=== PATIENT | male | born 1935 | race Caucasian/White ===

== ENCOUNTER 2020-03-14 12:58 | Emergency (ER) | payer MEDICARE ==
--- NOTE | 2020-03-14 13:34 | EDM.PDOC ---
ED HPI GENERAL MEDICAL PROBLEM - General Chief Complaint: Upper Extremity Injury/Pain Stated Complaint: FELL WHILE OUTSIDE HURT LEFT ARM Time Seen by Provider: 03/14/20 13:25 Source of Information: Reports: Patient History Limitations: Reports: No Limitations - History of Present Illness INITIAL COMMENTS - FREE TEXT/NARRATIVE: 84-year-old male slipped on the ice about 1-1/2 hours ago landing on his left shoulder. He arrives with pain just below the humeral head on the left side, elbow and wrist are nontender. He has significant pain when trying to move his shoulder. Onset: Sudden Duration: Hour(s): (1-1/2 hours ago) Location: Reports: Upper Extremity, Left Improves with: Reports: None Worsens with: Reports: Movement Context: Reports: Trauma Associated Symptoms: Reports: No Other Symptoms Left Upper Arm Pain Score (Numeric/FACES): 10 - Related Data Allergies Allergy/AdvReac Type Severity Reaction Status Date / Time No Known Allergies Allergy Verified 03/14/20 13:21 Home Meds: Home Meds Aspirin [[place] Aspirin EC] 81 mg PO DAILY 08/16/13 [History] Cholecalciferol (Vitamin D3) [Vitamin D3] 1,000 unit PO DAILY 08/16/13 [History] Cyanocobalamin (Vitamin B-12) [Phys[employer] Ez Use B-12] 1,000 mcg IM Q30D 08/16/13 [History] Donepezil HCl [Aricept ODT] 10 mg PO BEDTIME 08/16/13 [History] Tamsulosin HCl [Flomax] 0.4 mg PO DAILY 08/16/13 [History] amLODIPine Besylate [Amlodipine Besylate] 10 mg PO DAILY 08/16/13 [History] atorvaSTATin Calcium [Atorvastatin Calcium] 20 mg PO DAILY 08/16/13 [History] glipiZIDE [Glucotrol XL] 2.5 mg PO DAILY 08/16/13 [History] risperiDONE [RisperiDAL ODT] 0.5 mg PO BID 08/16/13 [History] Finasteride [Proscar] 5 mg PO DAILY 03/14/20 [History] metFORMIN [Glucophage XR] 1,000 mg PO WITHDINNER 03/14/20 [History] Past Medical History Cardiovascular History: Reports: High Cholesterol, Hypertension, [place], Stents Gastrointestinal History: Reports: Cholelithiasis Genitourinary History: Reports: Urinary Incontinence Endocrine/Metabolic History: Reports: Diabetes, Type II - Infectious Disease History Infectious Disease History: Reports: Measles - Past Surgical History Cardiovascular Surgical History: Reports: Coronary Artery Stent GI Surgical History: Reports: Cholecystectomy Social & Family History - Tobacco Use Tobacco Use Status *Q: Never Tobacco User - Caffeine Use Caffeine Use: Reports: Coffee - Recreational Drug Use Recreational Drug Use: No Review of Systems - Review of Systems Review Of Systems: See Below Constitutional: Denies: Fever Respiratory: Reports: No Symptoms Cardiovascular: Reports: No Symptoms Skin: Denies: Bruising Neurological: Denies: Paresthesia (No numbness to the distal left arm) ED EXAM, GENERAL - Physical Exam Exam: See Below Exam Limited By: No Limitations General Appearance: Alert, Mild Distress (Looks fairly uncomfortable) Head: Atraumatic Neck: Supple, Non-Tender Respiratory/Chest: No Respiratory Distress Extremities: Other (Exam of the left arm and upper chest shows no tenderness over the clavicle or AC joint. Mild swelling and tenderness over the proximal humerus, increased pain with any passive motion of the shoulder. Elbow and wrist are nontender) Course - Vital Signs Last Recorded V/S: Last Vital Signs Temp 98.2 F 03/14/20 13:30 Pulse 95 03/14/20 13:30 Resp 17 03/14/20 13:30 BP 167/89 H 03/14/20 13:30 Pulse Ox 97 03/14/20 13:30 - Orders/Labs/Meds Orders: Active Orders 24 hr Category Date Time Status DME for Discharge [COMM] Stat Oth 03/14/20 14:08 Ordered - Re-Assessments/Exams Free Text/Narrative Re-Assessment/Exam: 03/14/20 13:34 An x-ray of the left shoulder was obtained. 03/14/20 14:11 X-ray confirms a comminuted minimally displaced and slightly impacted left surgical neck fracture. Dr. Adam reviewed the films, recommended a sling for his arm and he will recheck him in 1 week. He was given 10 hydrocodone for extra pain control. Departure - Departure Time of Disposition: 14:30 Disposition: Home, Self-Care 01 Clinical Impression: Left humeral fracture Qualifiers: Encounter type: initial encounter Humerus Location: proximal Fracture type: closed Fracture alignment: displaced - Discharge Information Instructions: Humerus Fracture Treated With Immobilization, [id number] Referrals: PCP,None [Primary Care Provider] - Forms: ED Department Discharge Care Plan Goals: Wear sling at all times except briefly to bathe or change clothes. Recheck with Dr. Adam next Friday, 1 week from today, at 11 AM in the morning. Ibuprofen will help with pain, add stronger pain medication as directed for extra pain control. Recheck sooner if you develop complications or concerns. Sepsis Event Note (ED) - Evaluation Sepsis Screening Result: No Definite Risk - Focused Exam Vital Signs: Vital Signs Temp Pulse Resp BP Pulse Ox 03/14/20 13:30 98.2 F 95 17 167/89 H 97 03/14/20 13:21 98.2 F 95 17 167/89 H 97 - My Orders Last 24 Hours: My Active Orders 03/14/20 14:08 DME for Discharge [COMM] Stat - Assessment/Plan Last 24 Hours: My Active Orders 03/14/20 14:08 DME for Discharge [COMM] Stat
--- NOTE | 2020-03-14 14:01 | CR ---
Shoulder Comp Lt CLINICAL HISTORY: Fall, pain FINDINGS: There is a slightly displaced comminuted fracture of the proximal humerus. Glenohumeral joint appears intact. Impression: Comminuted fracture left humerus
== END 2020-03-14 14:30 | disposition home or self-care (01) ==
LOC: JP.ED 12:58
DX: S42.212A Unspecified displaced fracture of surgical neck of left humerus, initial encounter for closed fracture (principal); E78.00 Pure hypercholesterolemia, unspecified; I10 Essential (primary) hypertension; I25.2 Old myocardial infarction; E11.9 Type 2 diabetes mellitus without complications; Z95.5 Presence of coronary angioplasty implant and graft; Z79.82 Long term (current) use of aspirin; Z79.899 Other long term (current) drug therapy; W00.0XXA Fall on same level due to ice and snow, initial encounter; Y92.008 Other place in unspecified non-institutional (private) residence as the place of occurrence of the external cause
CPT/HCPCS: 73030-26-LT; 73030-LT; 99283-25

== ENCOUNTER 2022-11-26 20:26 | Inpatient (IN) | payer MEDICARE ==
[2022-11-26] MEDS ORDERED: fentaNYL 50 MCG/ML SDV IVPUSH ONE ×2 (20:48→22:04)
[2022-11-26] MEDS ORDERED: Sodium Chloride 0.9% 10 ML Syringe FLUSH PRN (20:48)
[2022-11-26 20:50] LABS: BASOPHILS ABSOLUTE AUTO 0.03 K/uL (0.00-0.10); BASOPHILS PERCENT AUTO 0.2 % (0.1-1.3); EOSINOPHILS PERCENT AUTO 0.1 % (0.0-5.4); HEMOGLOBIN 12.8 g/dL (12.9-16.9); IMMATURE GRAN ABSOLUTE AUTO 0.08 K/uL (0.00-0.23); IMMATURE GRAN PERCENT AUTO 0.6 % (0.0-0.7); LYMPHOCYTES ABSOLUTE AUTO 0.82 K/uL (0.8-3.3); LYMPHOCYTES PERCENT AUTO 6.5 % (11.4-47.7); MEAN CORPUSCULAR HEMOGLOBIN 31.8 pg (31.6-35.5); MEAN CORPUSCULAR HGB CONC 34.6 g/dL (31.6-35.5); MONOCYTES ABSOLUTE AUTO 0.75 K/uL (0.20-0.90); MONOCYTES PERCENT AUTO 5.9 % (3.3-12.6); NEUTROPHILS ABSOLUTE AUTO 10.94 K/uL (1.0-7.6); NEUTROPHILS PERCENT AUTO 86.7 % (40.0-78.1); PLATELET COUNT,PLT 179 K/uL (130-375); RED BLOOD CELL COUNT 4.02 M/uL (4.14-5.76); WHITE BLOOD CELL COUNT,WBC 12.6 K/uL (3.2-11.0)
[2022-11-26 20:51] LABS: EOSINOPHILS ABSOLUTE AUTO 0.01 K/uL (0.00-0.40)
[2022-11-26 21:10] LABS: A/G RATIO 0.9 (1.2-2.2); ALANINE AMINOTRANSFERASE,ALT 34 U/L (12-78); ALBUMIN 3.3 g/dL (3.4-5.0); ALKALINE PHOSPHATASE 107 U/L (46-116); ASPARTATE AMNIOTRANSFERASE,AST 25 U/L (15-37); BILIRUBIN TOTAL 0.7 mg/dL (0.2-1.0); BLOOD UREA NITROGEN,BUN 12 mg/dL (7-18); CALCIUM 8.6 mg/dL (8.5-10.1); CARBON DIOXIDE,CO2 26 mmol/L (21-32); CHLORIDE,CL 99 mmol/L (100-108); CREATININE 0.8 mg/dL (0.8-1.3); EST CRCL DRUG DOSING (CG) 59.53 mL/min; ESTIMATED GFR 86 mL/min (>60); GLUCOSE RANDOM 278 mg/dL (74-106); POTASSIUM,K 3.9 mmol/L (3.6-5.2); SODIUM,NA 136 mmol/L (140-148)
[2022-11-26 21:11] LABS: ANION GAP 14.9 mmol/L (5.0-14.0)
[2022-11-26 21:28] LABS: CORONAVIRUS COVID-19 NAA NEGATIVE (NEGATIVE); INFLUENZA A NAA NEGATIVE (NEGATIVE); INFLUENZA B NAA NEGATIVE (NEGATIVE); RESPIRATORY SYNCYTIAL VIR NAA NEGATIVE (NEGATIVE)
[2022-11-26 21:35] LABS: APPEARANCE,URINE SLIGHTLY CLOUDY (CLEAR); BILIRUBIN,URINE NEGATIVE (NEGATIVE); COLOR,URINE YELLOW (YELLOW); GLUCOSE,URINE 500 mg/dL (NEGATIVE); KETONES,URINE TRACE mg/dL (NEGATIVE); LEUKOCYTE ESTERASE,URINE NEGATIVE (NEGATIVE); NITRITE,URINE NEGATIVE (NEGATIVE); OCCULT BLOOD,URINE LARGE (NEGATIVE); PROTEIN,URINE 30 mg/dL (NEGATIVE)
[2022-11-26 21:44] LABS: AMORPHOUS SEDIMENT,URINE FEW; BACTERIA,URINE NOT SEEN; EPITHELIAL CELLS,URINE MODERATE; MUCUS,URINE RARE; RBC,URINE >100 (0-5); WBC,URINE 0-5 (0-5)
[2022-11-26] MEDS ORDERED: Naloxone 0.4 MG/ML SDV IVPUSH PRN ×2 (22:04→23:30)
[2022-11-26] MEDS ORDERED: risperiDONE 0.5 MG Tab PO SCH (23:30)
[2022-11-26] MEDS ORDERED: Ondansetron 4 MG Tab.DIS PO PRN (23:30)
[2022-11-26] MEDS ORDERED: HYDROmorphone 0.5 MG/0.5 ML Syringe IVPUSH PRN (23:30)
[2022-11-26] MEDS ORDERED: Donepezil 10 MG Tab PO SCH (23:30)
[2022-11-26] MEDS ORDERED: Acetaminophen 325 MG Tab PO PRN (23:30)
[2022-11-26] MEDS ORDERED: LORazepam 2 MG/ML SDV IV PRN (23:30)
[2022-11-27] MEDS ORDERED: risperiDONE 0.5 MG Tab PO ONE (00:06)
[2022-11-27] MEDS ORDERED: Donepezil 10 MG Tab PO ONE (00:10)
[2022-11-27] MEDS: Sodium Chloride 0.9% 1,000 ML IV SCH ×3 (00:27→21:15)
[2022-11-27] MEDS ORDERED: FLU (Fluad Quad) 2023-24(65UP)/MF59C/PF 60 MCG/0.5 ML Syringe IM ONE ×2 (02:15→10:00)
[2022-11-27 04:21] LABS: HEMATOCRIT 33.7 % (38.4-49.7); HEMOGLOBIN 11.6 g/dL (12.9-16.9); MEAN CORPUSCULAR HEMOGLOBIN 31.8 pg (31.6-35.5); MEAN CORPUSCULAR HGB CONC 34.4 g/dL (31.6-35.5); MEAN CORPUSCULAR VOLUME 92.3 fL (81.4-99.0); RED BLOOD CELL COUNT 3.65 M/uL (4.14-5.76)
[2022-11-27 04:36] LABS: CALCIUM 8.3 mg/dL (8.5-10.1); CREATININE 0.7 mg/dL (0.8-1.3); EST CRCL DRUG DOSING (CG) 68.04 mL/min; POTASSIUM,K 4.1 mmol/L (3.6-5.2)
[2022-11-27 05:26] LABS: ANION GAP 11.1 mmol/L (5.0-14.0)
[2022-11-27] MEDS: Insulin Lispro 100 Unit/ML 3 ML KwikPen SUBCUT SCH ×3 (08:42→21:00)
[2022-11-27] MEDS: Finasteride 5 MG Tab PO SCH (08:57)
[2022-11-27] MEDS: Docusate Sodium 100 MG Cap PO SCH ×2 (08:58→20:59)
[2022-11-27] MEDS: amLODIPine 5 MG Tab PO SCH (08:58)
[2022-11-27] MEDS: Cholecalciferol (Vitamin D3) 25 MCG Tab PO SCH (08:58)
[2022-11-27] MEDS: Tamsulosin 0.4 MG Cap.ER PO SCH (08:58)
[2022-11-27] MEDS ORDERED: amLODIPine 5 MG Tab PO SCH (09:00)
[2022-11-27] MEDS ORDERED: Cholecalciferol (Vitamin D3) 25 MCG Tab PO SCH (09:00)
[2022-11-27] MEDS ORDERED: Bupivacaine 0.5% 50 ML MDV ONE (12:14)
[2022-11-27] MEDS ORDERED: Propofol 200 MG/20 ML SDV ONE (13:46)
[2022-11-27] MEDS ORDERED: fentaNYL 100 MCG/2 ML SDV ONE (13:46)
[2022-11-27] MEDS ORDERED: Midazolam 1 MG/ML 2 ML SDV ONE (13:46)
[2022-11-27] MEDS ORDERED: Acetaminophen/HYDROcodone 325-5 MG Tab PO PRN (16:58)
[2022-11-27] MEDS: Donepezil 10 MG Tab PO SCH (20:59)
[2022-11-27] MEDS: Acetaminophen 500 MG Tab PO SCH (20:59)
[2022-11-27] MEDS: risperiDONE 0.5 MG Tab PO SCH (21:00)
[2022-11-27] MEDS: oxyCODONE 5 MG Tab PO PRN (21:08)
[2022-11-28 04:46] LABS: HEMATOCRIT 26.8 % (38.4-49.7); HEMOGLOBIN 9.1 g/dL (12.9-16.9); MEAN CORPUSCULAR HEMOGLOBIN 31.3 pg (31.6-35.5); MEAN CORPUSCULAR VOLUME 92.1 fL (81.4-99.0); RED BLOOD CELL COUNT 2.91 M/uL (4.14-5.76); WHITE BLOOD CELL COUNT,WBC 11.6 K/uL (3.2-11.0)
[2022-11-28 05:01] LABS: CALCIUM 7.6 mg/dL (8.5-10.1); CREATININE 0.5 mg/dL (0.8-1.3); EST CRCL DRUG DOSING (CG) 95.25 mL/min; POTASSIUM,K 4.1 mmol/L (3.6-5.2)
[2022-11-28 05:10] LABS: ANION GAP 8.1 mmol/L (5.0-14.0)
[2022-11-28] MEDS: Insulin Lispro 100 Unit/ML 3 ML KwikPen SUBCUT SCH ×4 (08:15→21:17)
[2022-11-28] MEDS: Tamsulosin 0.4 MG Cap.ER PO SCH (09:39)
[2022-11-28] MEDS: atorvaSTATin 20 MG Tab PO SCH (09:39)
[2022-11-28] MEDS: Docusate Sodium 100 MG Cap PO SCH ×2 (09:39→21:19)
[2022-11-28] MEDS: Acetaminophen 500 MG Tab PO SCH ×3 (09:40→21:19)
[2022-11-28] MEDS: Finasteride 5 MG Tab PO SCH (09:40)
[2022-11-28] MEDS: Cholecalciferol (Vitamin D3) 25 MCG Tab PO SCH (09:40)
[2022-11-28] MEDS: amLODIPine 5 MG Tab PO SCH (09:44)
[2022-11-28] MEDS: Aspirin 81 MG Tab.Chew PO SCH ×2 (10:10→21:19)
[2022-11-28] MEDS: Sodium Chloride 0.9% 1,000 ML IV SCH (10:10)
[2022-11-28] MEDS ORDERED: Sodium Chloride 0.9% 1,000 ML IV SCH (15:45)
[2022-11-28] MEDS: Donepezil 10 MG Tab PO SCH (21:19)
[2022-11-28] MEDS: risperiDONE 0.5 MG Tab PO SCH (21:19)
[2022-11-29] MEDS: Insulin Lispro 100 Unit/ML 3 ML KwikPen SUBCUT SCH (08:02)
[2022-11-29] MEDS: Aspirin 81 MG Tab.Chew PO SCH ×2 (08:20→20:21)
[2022-11-29] MEDS: Tamsulosin 0.4 MG Cap.ER PO SCH (08:20)
[2022-11-29] MEDS: atorvaSTATin 20 MG Tab PO SCH (08:20)
[2022-11-29] MEDS: Finasteride 5 MG Tab PO SCH (08:21)
[2022-11-29] MEDS: amLODIPine 5 MG Tab PO SCH (08:21)
[2022-11-29] MEDS: Cholecalciferol (Vitamin D3) 25 MCG Tab PO SCH (08:21)
[2022-11-29] MEDS: Acetaminophen 500 MG Tab PO SCH ×3 (08:21→20:21)
[2022-11-29] MEDS: Docusate Sodium 100 MG Cap PO SCH ×2 (08:22→20:21)
[2022-11-29] MEDS: oxyCODONE 5 MG Tab PO PRN (11:19)
[2022-11-29] MEDS: metFORMIN 500 MG Tab PO SCH (16:37)
[2022-11-29] MEDS: Metoprolol Tartrate 50 MG Tab PO SCH (18:03)
[2022-11-29] MEDS: cefTRIAXone 1 GM in Sodium Chloride 0.9% 50 ML IV SCH (20:11)
[2022-11-29] MEDS: risperiDONE 0.5 MG Tab PO SCH (20:20)
[2022-11-29] MEDS: Donepezil 10 MG Tab PO SCH (20:21)
[2022-11-29 21:28] LABS: BILIRUBIN,URINE NEGATIVE (NEGATIVE); COLOR,URINE YELLOW (YELLOW); GLUCOSE,URINE 500 mg/dL (NEGATIVE); KETONES,URINE NEGATIVE (NEGATIVE); LEUKOCYTE ESTERASE,URINE NEGATIVE (NEGATIVE); NITRITE,URINE NEGATIVE (NEGATIVE); OCCULT BLOOD,URINE TRACE-INTACT (NEGATIVE); PH,URINE 5.5 (5.0-8.0); PROTEIN,URINE 30 mg/dL (NEGATIVE)
[2022-11-29 21:37] LABS: AMORPHOUS SEDIMENT,URINE NOT SEEN; APPEARANCE,URINE SLIGHTLY CLOUDY (CLEAR); BACTERIA,URINE MODERATE; EPITHELIAL CELLS,URINE FEW; MUCUS,URINE MODERATE; WBC,URINE 0-5 (0-5)
[2022-11-30 04:49] LABS: BASOPHILS PERCENT AUTO 0.1 % (0.1-1.3); EOSINOPHILS PERCENT AUTO 0.1 % (0.0-5.4); HEMATOCRIT 24.5 % (38.4-49.7); HEMOGLOBIN 8.4 g/dL (12.9-16.9); IMMATURE GRAN ABSOLUTE AUTO 0.18 K/uL (0.00-0.23); LYMPHOCYTES ABSOLUTE AUTO 1.01 K/uL (0.8-3.3); LYMPHOCYTES PERCENT AUTO 5.3 % (11.4-47.7); MEAN CORPUSCULAR HEMOGLOBIN 31.6 pg (31.6-35.5); MEAN CORPUSCULAR HGB CONC 34.3 g/dL (31.6-35.5); MEAN CORPUSCULAR VOLUME 92.1 fL (81.4-99.0); MONOCYTES ABSOLUTE AUTO 0.82 K/uL (0.20-0.90); MONOCYTES PERCENT AUTO 4.3 % (3.3-12.6); NEUTROPHILS PERCENT AUTO 89.2 % (40.0-78.1); PLATELET COUNT,PLT 183 K/uL (130-375); RED BLOOD CELL COUNT 2.66 M/uL (4.14-5.76); WHITE BLOOD CELL COUNT,WBC 18.9 K/uL (3.2-11.0)
[2022-11-30 05:04] LABS: BASOPHILS ABSOLUTE AUTO 0.02 K/uL (0.00-0.10); CREATININE 0.7 mg/dL (0.8-1.3); EOSINOPHILS ABSOLUTE AUTO 0.01 K/uL (0.00-0.40); EST CRCL DRUG DOSING (CG) 68.04 mL/min; POTASSIUM,K 3.4 mmol/L (3.6-5.2)
[2022-11-30 05:48] LABS: ANION GAP 10.4 mmol/L (5.0-14.0)
[2022-11-30] MEDS: oxyCODONE 5 MG Tab PO PRN ×2 (08:01→17:04)
[2022-11-30] MEDS: metFORMIN 500 MG Tab PO SCH ×2 (08:03→17:05)
[2022-11-30] MEDS: Aspirin 81 MG Tab.Chew PO SCH ×2 (08:04→20:38)
[2022-11-30] MEDS: atorvaSTATin 20 MG Tab PO SCH (08:05)
[2022-11-30] MEDS: Tamsulosin 0.4 MG Cap.ER PO SCH (08:05)
[2022-11-30] MEDS: Docusate Sodium 100 MG Cap PO SCH ×2 (08:05→20:39)
[2022-11-30] MEDS: Finasteride 5 MG Tab PO SCH (08:06)
[2022-11-30] MEDS: Acetaminophen 500 MG Tab PO SCH ×3 (08:06→20:38)
[2022-11-30] MEDS: Cholecalciferol (Vitamin D3) 25 MCG Tab PO SCH (08:07)
[2022-11-30] MEDS: amLODIPine 5 MG Tab PO SCH (09:16)
[2022-11-30] MEDS: Metoprolol Tartrate 50 MG Tab PO SCH ×2 (09:24→20:39)
[2022-11-30] MEDS: cefTRIAXone 1 GM in Sodium Chloride 0.9% 50 ML IV SCH (20:35)
[2022-11-30] MEDS: Donepezil 10 MG Tab PO SCH (20:39)
[2022-11-30] MEDS: risperiDONE 0.5 MG Tab PO SCH (20:39)
[2022-12-01 04:21] LABS: HEMATOCRIT 24.1 % (38.4-49.7); MEAN CORPUSCULAR HEMOGLOBIN 30.9 pg (31.6-35.5); MEAN CORPUSCULAR HGB CONC 33.2 g/dL (31.6-35.5); MEAN CORPUSCULAR VOLUME 93.1 fL (81.4-99.0); RED BLOOD CELL COUNT 2.59 M/uL (4.14-5.76); WHITE BLOOD CELL COUNT,WBC 12.4 K/uL (3.2-11.0)
[2022-12-01 04:36] LABS: CREATININE 0.7 mg/dL (0.8-1.3); EST CRCL DRUG DOSING (CG) 68.04 mL/min; POTASSIUM,K 3.6 mmol/L (3.6-5.2)
[2022-12-01 04:39] LABS: ANION GAP 12.6 mmol/L (5.0-14.0)
[2022-12-01] MEDS: Aspirin 81 MG Tab.Chew PO SCH ×2 (08:58→20:56)
[2022-12-01] MEDS: Docusate Sodium 100 MG Cap PO SCH ×2 (08:58→20:56)
[2022-12-01] MEDS: Tamsulosin 0.4 MG Cap.ER PO SCH (08:58)
[2022-12-01] MEDS: Cholecalciferol (Vitamin D3) 25 MCG Tab PO SCH (08:58)
[2022-12-01] MEDS: Metoprolol Tartrate 50 MG Tab PO SCH ×2 (08:58→20:56)
[2022-12-01] MEDS: metFORMIN 500 MG Tab PO SCH ×2 (08:58→17:30)
[2022-12-01] MEDS: atorvaSTATin 20 MG Tab PO SCH (08:58)
[2022-12-01] MEDS: Finasteride 5 MG Tab PO SCH (08:58)
[2022-12-01] MEDS: Acetaminophen 500 MG Tab PO SCH ×3 (08:59→20:56)
[2022-12-01] MEDS: cefTRIAXone 1 GM in Sodium Chloride 0.9% 50 ML IV SCH (20:48)
[2022-12-01] MEDS: Donepezil 10 MG Tab PO SCH (20:56)
[2022-12-01] MEDS: risperiDONE 0.5 MG Tab PO SCH (20:56)
[2022-12-02 04:40] LABS: HEMATOCRIT 24.7 % (38.4-49.7); HEMOGLOBIN 8.4 g/dL (12.9-16.9); MEAN CORPUSCULAR HEMOGLOBIN 31.3 pg (31.6-35.5); MEAN CORPUSCULAR VOLUME 92.2 fL (81.4-99.0); RED BLOOD CELL COUNT 2.68 M/uL (4.14-5.76); WHITE BLOOD CELL COUNT,WBC 10.2 K/uL (3.2-11.0)
[2022-12-02 04:55] LABS: ANION GAP 9.7 mmol/L (5.0-14.0); CALCIUM 8.1 mg/dL (8.5-10.1); CREATININE 0.8 mg/dL (0.8-1.3); EST CRCL DRUG DOSING (CG) 58.43 mL/min; POTASSIUM,K 3.8 mmol/L (3.6-5.2)
[2022-12-02] MEDS: oxyCODONE 5 MG Tab PO PRN ×3 (07:40→17:19)
[2022-12-02] MEDS: Metoprolol Tartrate 50 MG Tab PO SCH ×2 (08:07→20:34)
[2022-12-02] MEDS: Docusate Sodium 100 MG Cap PO SCH ×2 (08:10→20:34)
[2022-12-02] MEDS: atorvaSTATin 20 MG Tab PO SCH (08:10)
[2022-12-02] MEDS: Tamsulosin 0.4 MG Cap.ER PO SCH (08:10)
[2022-12-02] MEDS: Aspirin 81 MG Tab.Chew PO SCH ×2 (08:10→20:34)
[2022-12-02] MEDS: Acetaminophen 500 MG Tab PO SCH ×3 (08:10→20:34)
[2022-12-02] MEDS: metFORMIN 500 MG Tab PO SCH ×2 (08:10→17:19)
[2022-12-02] MEDS: Finasteride 5 MG Tab PO SCH (08:10)
[2022-12-02] MEDS: Cholecalciferol (Vitamin D3) 25 MCG Tab PO SCH (08:11)
[2022-12-02] MEDS: risperiDONE 0.5 MG Tab PO SCH (20:34)
[2022-12-02] MEDS: Donepezil 10 MG Tab PO SCH (20:34)
[2022-12-03] MEDS: oxyCODONE 5 MG Tab PO PRN ×2 (05:24→10:33)
[2022-12-03] MEDS: metFORMIN 500 MG Tab PO SCH (08:29)
[2022-12-03] MEDS: atorvaSTATin 20 MG Tab PO SCH (08:30)
[2022-12-03] MEDS: Finasteride 5 MG Tab PO SCH (08:30)
[2022-12-03] MEDS: Cholecalciferol (Vitamin D3) 25 MCG Tab PO SCH (08:30)
[2022-12-03] MEDS: Aspirin 81 MG Tab.Chew PO SCH (08:30)
[2022-12-03] MEDS: Acetaminophen 500 MG Tab PO SCH (08:30)
[2022-12-03] MEDS: Docusate Sodium 100 MG Cap PO SCH (08:30)
[2022-12-03] MEDS: Metoprolol Tartrate 50 MG Tab PO SCH (08:31)
[2022-12-03] MEDS: Tamsulosin 0.4 MG Cap.ER PO SCH (08:33)
== END 2022-12-03 10:42 | DRG 522 ==
LOC: JP.ED 20:26 → JP.MS 21:29
PROVIDERS: ADMIT Internal Medicine; ATTEND Specialist
PROC: 0SRR0JZ Replacement of Right Hip Joint, Femoral Surface with Synthetic Substitute, Open Approach (ICD-10-PCS; principal; 2022-11-27 12:15)
DX: S72.141A Displaced intertrochanteric fracture of right femur, initial encounter for closed fracture (principal); D62 Acute posthemorrhagic anemia; F03.B18 Unspecified dementia, moderate, with other behavioral disturbance; I48.0 Paroxysmal atrial fibrillation; W18.30XA Fall on same level, unspecified, initial encounter; E11.9 Type 2 diabetes mellitus without complications; E78.00 Pure hypercholesterolemia, unspecified; I25.10 Atherosclerotic heart disease of native coronary artery without angina pectoris; G30.9 Alzheimer's disease, unspecified; W19.XXXA Unspecified fall, initial encounter; F02.80 Dementia in other diseases classified elsewhere, unspecified severity, without behavioral disturbance, psychotic disturbance, mood disturbance, and anxiety; I10 Essential (primary) hypertension; I25.2 Old myocardial infarction; Z95.5 Presence of coronary angioplasty implant and graft; Z98.890 Other specified postprocedural states; Z79.82 Long term (current) use of aspirin; Z79.84 Long term (current) use of oral hypoglycemic drugs; Z79.899 Other long term (current) drug therapy; Y92.89 Other specified places as the place of occurrence of the external cause; Z90.49 Acquired absence of other specified parts of digestive tract; Z87.891 Personal history of nicotine dependence
CPT/HCPCS: 0241U; 36415; 51702; 71045; 72170; 72192; 76377; 76770; 80048; 80053; 81001; 82947; 85018; 85025; 85027; 93005; 93010; 96374; 97110; 97162; 97165; 97530; 99223; 99233; 99238; 99285; 99284; A9270-GY; C1713; C1776; J0696; J1170; J1815; J2250; J2704; J3010; J3490; J7030

== ENCOUNTER 2023-01-10 17:01 | Inpatient (IN) | payer MEDICARE ==
[2023-01-10] MEDS ORDERED: Sodium Chloride 0.9% 1,000 ML IV ONE (17:17)
[2023-01-10] MEDS ORDERED: Sodium Chloride 0.9% 10 ML Syringe FLUSH PRN (17:17)
[2023-01-10 17:35] LABS: BASOPHILS ABSOLUTE AUTO 0.07 K/uL (0.00-0.10); BASOPHILS PERCENT AUTO 0.3 % (0.1-1.3); EOSINOPHILS PERCENT AUTO 0.1 % (0.0-5.4); HEMATOCRIT 28.6 % (38.4-49.7); HEMOGLOBIN 9.3 g/dL (12.9-16.9); IMMATURE GRAN ABSOLUTE AUTO 0.32 K/uL (0.00-0.23); IMMATURE GRAN PERCENT AUTO 1.3 % (0.0-0.7); LYMPHOCYTES ABSOLUTE AUTO 1.52 K/uL (0.8-3.3); MEAN CORPUSCULAR HEMOGLOBIN 29.2 pg (31.6-35.5); MEAN CORPUSCULAR HGB CONC 32.5 g/dL (31.6-35.5); MEAN CORPUSCULAR VOLUME 89.7 fL (81.4-99.0); MONOCYTES ABSOLUTE AUTO 0.73 K/uL (0.20-0.90); MONOCYTES PERCENT AUTO 2.9 % (3.3-12.6); NEUTROPHILS PERCENT AUTO 89.4 % (40.0-78.1); PLATELET COUNT,PLT 428 K/uL (130-375); RED BLOOD CELL COUNT 3.19 M/uL (4.14-5.76); WHITE BLOOD CELL COUNT,WBC 25.5 K/uL (3.2-11.0)
[2023-01-10 17:37] LABS: EOSINOPHILS ABSOLUTE AUTO 0.02 K/uL (0.00-0.40)
[2023-01-10 17:56] LABS: A/G RATIO 0.4 (1.2-2.2); ALANINE AMINOTRANSFERASE,ALT 25 U/L (12-78); ALBUMIN 1.9 g/dL (3.4-5.0); ALKALINE PHOSPHATASE 143 U/L (46-116); ASPARTATE AMNIOTRANSFERASE,AST 29 U/L (15-37); BILIRUBIN TOTAL 0.3 mg/dL (0.2-1.0); BLOOD UREA NITROGEN,BUN 28 mg/dL (7-18); CALCIUM 8.5 mg/dL (8.5-10.1); CARBON DIOXIDE,CO2 26 mmol/L (21-32); CHLORIDE,CL 94 mmol/L (100-108); CREATININE 0.9 mg/dL (0.8-1.3); EST CRCL DRUG DOSING (CG) 41.14 mL/min; ESTIMATED GFR 83 mL/min (>60); GLUCOSE RANDOM 187 mg/dL (74-106); POTASSIUM,K 5.6 mmol/L (3.6-5.2); PROTEIN TOTAL,TP 6.8 g/dL (6.4-8.2); SODIUM,NA 129 mmol/L (140-148)
[2023-01-10 17:57] LABS: ANION GAP 14.6 mmol/L (5.0-14.0)
[2023-01-10 18:45] LABS: CORONAVIRUS COVID-19 NAA NEGATIVE (NEGATIVE); INFLUENZA A NAA NEGATIVE (NEGATIVE); INFLUENZA B NAA NEGATIVE (NEGATIVE); RESPIRATORY SYNCYTIAL VIR NAA NEGATIVE (NEGATIVE)
[2023-01-10 19:01] LABS: APPEARANCE,URINE CLEAR (CLEAR); BILIRUBIN,URINE NEGATIVE (NEGATIVE); COLOR,URINE YELLOW (YELLOW); GLUCOSE,URINE NEGATIVE (NEGATIVE); KETONES,URINE NEGATIVE (NEGATIVE); LEUKOCYTE ESTERASE,URINE NEGATIVE (NEGATIVE); NITRITE,URINE NEGATIVE (NEGATIVE); OCCULT BLOOD,URINE TRACE-INTACT (NEGATIVE); PH,URINE 5.5 (5.0-8.0); PROTEIN,URINE 30 mg/dL (NEGATIVE); UROBILINOGEN,URINE 0.2 EU/dL (0.2-1.0)
[2023-01-10] MEDS ORDERED: Acetaminophen 1,000 MG in Premix Bag 1 BAG IV ONE (19:01)
[2023-01-10 19:07] LABS: AMORPHOUS SEDIMENT,URINE NOT SEEN; BACTERIA,URINE FEW; EPITHELIAL CELLS,URINE RARE; MUCUS,URINE NOT SEEN; RBC,URINE 0-5 (0-5); WBC,URINE 0-5 (0-5)
[2023-01-10] MEDS ORDERED: Bisacodyl 10 MG Supp RECTAL PRN (19:46)
[2023-01-10] MEDS ORDERED: Morphine 2 MG/ML SYRINGE IVPUSH PRN (19:46)
[2023-01-10] MEDS ORDERED: Naloxone 0.4 MG/ML SDV IVPUSH PRN (19:46)
[2023-01-10] MEDS ORDERED: Acetaminophen 325 MG Tab PO PRN (19:46)
[2023-01-10 20:49] LABS: LACTIC ACID 1.4 mmol/L (0.4-2.0)
[2023-01-10] MEDS ORDERED: Aspirin 81 MG Tab.EC PO SCH (21:00)
[2023-01-10] MEDS: Donepezil 10 MG Tab PO SCH (21:47)
[2023-01-10] MEDS: Pantoprazole 40 MG Vial IV SCH (21:48)
[2023-01-10] MEDS: Metoprolol Tartrate 50 MG Tab PO SCH (21:48)
[2023-01-10] MEDS: Sodium Chloride 0.9% 1,000 ML IV SCH (23:55)
[2023-01-11] MEDS: oxyCODONE 5 MG Tab PO PRN ×3 (03:32→21:43)
[2023-01-11 04:35] LABS: BASOPHILS ABSOLUTE AUTO 0.05 K/uL (0.00-0.10); BASOPHILS PERCENT AUTO 0.2 % (0.1-1.3); EOSINOPHILS PERCENT AUTO 0.1 % (0.0-5.4); HEMATOCRIT 25.2 % (38.4-49.7); HEMOGLOBIN 8.4 g/dL (12.9-16.9); IMMATURE GRAN ABSOLUTE AUTO 0.33 K/uL (0.00-0.23); IMMATURE GRAN PERCENT AUTO 1.6 % (0.0-0.7); LYMPHOCYTES ABSOLUTE AUTO 1.54 K/uL (0.8-3.3); LYMPHOCYTES PERCENT AUTO 7.4 % (11.4-47.7); MEAN CORPUSCULAR HEMOGLOBIN 29.5 pg (31.6-35.5); MEAN CORPUSCULAR HGB CONC 33.3 g/dL (31.6-35.5); MEAN CORPUSCULAR VOLUME 88.4 fL (81.4-99.0); MONOCYTES ABSOLUTE AUTO 0.62 K/uL (0.20-0.90); NEUTROPHILS ABSOLUTE AUTO 18.27 K/uL (1.0-7.6); NEUTROPHILS PERCENT AUTO 87.7 % (40.0-78.1); PLATELET COUNT,PLT 352 K/uL (130-375); RED BLOOD CELL COUNT 2.85 M/uL (4.14-5.76); WHITE BLOOD CELL COUNT,WBC 20.8 K/uL (3.2-11.0)
[2023-01-11 04:55] LABS: CREATININE 0.6 mg/dL (0.8-1.3); EST CRCL DRUG DOSING (CG) 64.16 mL/min; POTASSIUM,K 4.6 mmol/L (3.6-5.2)
[2023-01-11 05:04] LABS: EOSINOPHILS ABSOLUTE AUTO 0.02 K/uL (0.00-0.40)
[2023-01-11 05:05] LABS: ANION GAP 12.6 mmol/L (5.0-14.0)
[2023-01-11] MEDS: Sodium Chloride 0.9% 1,000 ML IV SCH (07:31)
[2023-01-11] MEDS: Tamsulosin 0.4 MG Cap.ER PO SCH (08:14)
[2023-01-11] MEDS: Cholecalciferol (Vitamin D3) 25 MCG Tab PO SCH (08:14)
[2023-01-11] MEDS: Metoprolol Tartrate 50 MG Tab PO SCH ×2 (08:14→21:44)
[2023-01-11] MEDS: Aspirin 81 MG Tab.Chew PO SCH ×2 (08:14→21:43)
[2023-01-11] MEDS: Finasteride 5 MG Tab PO SCH (08:15)
[2023-01-11] MEDS: Insulin Lispro 100 Unit/ML 3 ML KwikPen SUBCUT SCH ×4 (09:13→21:12)
[2023-01-11] MEDS: Acetaminophen 325 MG Tab PO PRN (12:18)
[2023-01-11] MEDS ORDERED: Propofol 200 MG/20 ML SDV ONE (20:00)
[2023-01-11] MEDS: Donepezil 10 MG Tab PO SCH (21:44)
[2023-01-11] MEDS: Pantoprazole 40 MG Vial IV SCH (21:48)
[2023-01-12 04:46] LABS: HEMATOCRIT 25.3 % (38.4-49.7); HEMOGLOBIN 8.1 g/dL (12.9-16.9); MEAN CORPUSCULAR HEMOGLOBIN 28.7 pg (31.6-35.5); MEAN CORPUSCULAR VOLUME 89.7 fL (81.4-99.0); RED BLOOD CELL COUNT 2.82 M/uL (4.14-5.76); WHITE BLOOD CELL COUNT,WBC 17.9 K/uL (3.2-11.0)
[2023-01-12 05:16] LABS: CALCIUM 7.8 mg/dL (8.5-10.1); CREATININE 0.5 mg/dL (0.8-1.3); POTASSIUM,K 4.4 mmol/L (3.6-5.2); VANCOMYCIN RANDOM 14.8 ug/mL (0.0-50.0)
[2023-01-12 05:21] LABS: ANION GAP 10.4 mmol/L (5.0-14.0)
[2023-01-12] MEDS: Sodium Chloride 0.9% 1,000 ML IV SCH ×2 (05:36→20:18)
[2023-01-12] MEDS: Insulin Lispro 100 Unit/ML 3 ML KwikPen SUBCUT SCH ×4 (07:31→21:59)
[2023-01-12] MEDS: Aspirin 81 MG Tab.Chew PO SCH ×2 (09:22→20:21)
[2023-01-12] MEDS: Tamsulosin 0.4 MG Cap.ER PO SCH (09:23)
[2023-01-12] MEDS: Metoprolol Tartrate 50 MG Tab PO SCH ×2 (09:24→20:22)
[2023-01-12] MEDS: Finasteride 5 MG Tab PO SCH (09:25)
[2023-01-12] MEDS: Cholecalciferol (Vitamin D3) 25 MCG Tab PO SCH (09:25)
[2023-01-12] MEDS: oxyCODONE 5 MG Tab PO PRN ×2 (11:11→20:21)
[2023-01-12] MEDS: Donepezil 10 MG Tab PO SCH (20:21)
[2023-01-12] MEDS: Pantoprazole 40 MG Vial IV SCH (20:22)
[2023-01-13] MEDS: Acetaminophen 325 MG Tab PO PRN ×2 (00:09→16:47)
[2023-01-13] MEDS: oxyCODONE 5 MG Tab PO PRN ×2 (00:14→13:49)
[2023-01-13 05:37] LABS: HEMATOCRIT 25.9 % (38.4-49.7); HEMOGLOBIN 8.2 g/dL (12.9-16.9); MEAN CORPUSCULAR HEMOGLOBIN 28.7 pg (31.6-35.5); MEAN CORPUSCULAR HGB CONC 31.7 g/dL (31.6-35.5); MEAN CORPUSCULAR VOLUME 90.6 fL (81.4-99.0); RED BLOOD CELL COUNT 2.86 M/uL (4.14-5.76); WHITE BLOOD CELL COUNT,WBC 15.1 K/uL (3.2-11.0)
[2023-01-13 05:56] LABS: C-REACTIVE PROTEIN 9.47 mg/dL (0.0-0.3); CALCIUM 7.8 mg/dL (8.5-10.1); CREATININE 0.6 mg/dL (0.8-1.3); EST CRCL DRUG DOSING (CG) 64.16 mL/min
[2023-01-13] MEDS ORDERED: Bacitracin Oint 1 GM U/D Packet ONE (06:47)
[2023-01-13] MEDS ORDERED: Propofol 200 MG/20 ML SDV ONE (07:08)
[2023-01-13] MEDS ORDERED: Succinylcholine 200 MG/10 ML MDV ONE (07:08)
[2023-01-13] MEDS ORDERED: Ondansetron 4 MG/2 ML SDV ONE (07:08)
[2023-01-13] MEDS ORDERED: Rocuronium 50 MG/5 ML Vial ONE (07:08)
[2023-01-13] MEDS ORDERED: Dexamethasone 4 MG/ML SDV ONE (07:08)
[2023-01-13] MEDS ORDERED: fentaNYL 250 MCG/5 ML SDV ONE (07:08)
[2023-01-13] MEDS ORDERED: Neostigmine Methylsulfate 1 MG/ML 5 ML Syringe ONE (07:08)
[2023-01-13] MEDS ORDERED: Glycopyrrolate 0.2 MG/ML 5 ML MDV ONE (07:08)
[2023-01-13] MEDS: Bupivacaine 0.5% 30 ML SDV ONE ×2 (08:27→11:54)
[2023-01-13] MEDS: Insulin Lispro 100 Unit/ML 3 ML KwikPen SUBCUT SCH ×4 (08:50→21:27)
[2023-01-13] MEDS: Nozin Nasal Sanitizer NASBOTH SCH ×2 (08:54→20:47)
[2023-01-13] MEDS: Metoprolol Tartrate 50 MG Tab PO SCH ×2 (08:59→20:50)
[2023-01-13] MEDS: Cholecalciferol (Vitamin D3) 25 MCG Tab PO SCH (08:59)
[2023-01-13] MEDS: Aspirin 81 MG Tab.Chew PO SCH ×2 (08:59→20:49)
[2023-01-13] MEDS ORDERED: Lactated Ringers 1,000 ML ONE (10:16)
[2023-01-13] MEDS: Sodium Chloride 0.9% 1,000 ML IV SCH (13:04)
[2023-01-13] MEDS: Tamsulosin 0.4 MG Cap.ER PO SCH (13:48)
[2023-01-13] MEDS: Finasteride 5 MG Tab PO SCH (13:48)
[2023-01-13] MEDS: Sennosides/Docusate Sodium 50-8.6 MG Tab PO SCH ×2 (16:44→20:52)
[2023-01-13] MEDS: Donepezil 10 MG Tab PO SCH (20:49)
[2023-01-13] MEDS: Pantoprazole 40 MG Vial IV SCH (20:57)
[2023-01-14] MEDS: oxyCODONE 5 MG Tab PO PRN ×3 (01:35→16:39)
[2023-01-14] MEDS: Sodium Chloride 0.9% 1,000 ML IV SCH (03:22)
[2023-01-14 07:02] LABS: HEMATOCRIT 21.2 % (38.4-49.7); MEAN CORPUSCULAR HEMOGLOBIN 29.1 pg (31.6-35.5); MEAN CORPUSCULAR HGB CONC 32.1 g/dL (31.6-35.5); MEAN CORPUSCULAR VOLUME 90.6 fL (81.4-99.0); RED BLOOD CELL COUNT 2.34 M/uL (4.14-5.76); WHITE BLOOD CELL COUNT,WBC 16.1 K/uL (3.2-11.0)
[2023-01-14 07:09] LABS: HEMOGLOBIN 6.8 g/dL (12.9-16.9)
[2023-01-14 07:28] LABS: CALCIUM 7.6 mg/dL (8.5-10.1); CREATININE 0.7 mg/dL (0.8-1.3); POTASSIUM,K 4.1 mmol/L (3.6-5.2)
[2023-01-14 07:30] LABS: ANION GAP 12.1 mmol/L (5.0-14.0)
[2023-01-14] MEDS: Insulin Lispro 100 Unit/ML 3 ML KwikPen SUBCUT SCH ×4 (08:46→21:00)
[2023-01-14] MEDS: Aspirin 81 MG Tab.Chew PO SCH ×2 (08:54→20:02)
[2023-01-14] MEDS: Finasteride 5 MG Tab PO SCH (08:55)
[2023-01-14] MEDS: Nozin Nasal Sanitizer NASBOTH SCH ×2 (08:55→20:01)
[2023-01-14] MEDS: Metoprolol Tartrate 50 MG Tab PO SCH ×2 (08:55→20:02)
[2023-01-14] MEDS: Sennosides/Docusate Sodium 50-8.6 MG Tab PO SCH ×2 (08:56→20:02)
[2023-01-14] MEDS: Tamsulosin 0.4 MG Cap.ER PO SCH (08:56)
[2023-01-14] MEDS: Cholecalciferol (Vitamin D3) 25 MCG Tab PO SCH (08:56)
[2023-01-14] MEDS: Vancomycin 0.9 GM in Sodium Chloride 0.9% 250 ML IV SCH ×2 (10:59→20:00)
[2023-01-14] MEDS: Morphine 10 MG/0.5 ML Oral Syringe PO PRN (20:45)
[2023-01-15] MEDS: Morphine 10 MG/0.5 ML Oral Syringe PO PRN ×8 (01:17→21:45)
[2023-01-15 05:30] LABS: HEMATOCRIT 24.9 % (38.4-49.7); HEMOGLOBIN 8.1 g/dL (12.9-16.9); MEAN CORPUSCULAR HEMOGLOBIN 29.2 pg (31.6-35.5); MEAN CORPUSCULAR HGB CONC 32.5 g/dL (31.6-35.5); MEAN CORPUSCULAR VOLUME 89.9 fL (81.4-99.0); RED BLOOD CELL COUNT 2.77 M/uL (4.14-5.76); WHITE BLOOD CELL COUNT,WBC 14.7 K/uL (3.2-11.0)
[2023-01-15 05:38] LABS: CALCIUM 7.7 mg/dL (8.5-10.1); CREATININE 0.7 mg/dL (0.8-1.3); POTASSIUM,K 3.8 mmol/L (3.6-5.2)
[2023-01-15 05:56] LABS: ANION GAP 10.8 mmol/L (5.0-14.0)
[2023-01-15] MEDS: Insulin Lispro 100 Unit/ML 3 ML KwikPen SUBCUT SCH ×4 (07:40→21:39)
[2023-01-15] MEDS: Acetaminophen 325 MG Tab PO PRN (08:44)
[2023-01-15] MEDS: Nozin Nasal Sanitizer NASBOTH SCH ×2 (08:45→21:47)
[2023-01-15] MEDS: Sennosides/Docusate Sodium 50-8.6 MG Tab PO SCH ×2 (08:47→21:47)
[2023-01-15] MEDS: Finasteride 5 MG Tab PO SCH (08:47)
[2023-01-15] MEDS: Aspirin 81 MG Tab.Chew PO SCH ×2 (08:47→21:47)
[2023-01-15] MEDS: Tamsulosin 0.4 MG Cap.ER PO SCH (08:47)
[2023-01-15] MEDS: Metoprolol Tartrate 50 MG Tab PO SCH ×2 (08:48→21:47)
[2023-01-15] MEDS: Vancomycin 0.9 GM in Sodium Chloride 0.9% 250 ML IV SCH (10:48)
[2023-01-16] MEDS: Morphine 10 MG/0.5 ML Oral Syringe PO PRN ×2 (04:02→08:23)
[2023-01-16] MEDS: Insulin Lispro 100 Unit/ML 3 ML KwikPen SUBCUT SCH (07:51)
[2023-01-16] MEDS: Aspirin 81 MG Tab.Chew PO SCH (08:21)
[2023-01-16] MEDS: Nozin Nasal Sanitizer NASBOTH SCH (08:21)
[2023-01-16] MEDS: Acetaminophen 325 MG Tab PO PRN (08:22)
[2023-01-16] MEDS: Tamsulosin 0.4 MG Cap.ER PO SCH (08:22)
[2023-01-16] MEDS: Metoprolol Tartrate 50 MG Tab PO SCH (08:22)
[2023-01-16] MEDS: Sennosides/Docusate Sodium 50-8.6 MG Tab PO SCH (08:23)
[2023-01-16] MEDS: Finasteride 5 MG Tab PO SCH (08:23)
== END 2023-01-16 09:30 | DRG 466 ==
LOC: JP.ED 17:01 → EEVIPCON 19:15 → JP.MS 19:15
PROVIDERS: ADMIT Internal Medicine; ATTEND Specialist
PROC: 0SP90JZ Removal of Synthetic Substitute from Right Hip Joint, Open Approach (ICD-10-PCS; 2023-01-13)
PROC: 0SR90JZ Replacement of Right Hip Joint with Synthetic Substitute, Open Approach (ICD-10-PCS; principal; 2023-01-13 08:30)
PROC: 30233N1 Transfusion of Nonautologous Red Blood Cells into Peripheral Vein, Percutaneous Approach (ICD-10-PCS; 2023-01-14)
DX: T84.51XA Infection and inflammatory reaction due to internal right hip prosthesis, initial encounter (principal); A41.02 Sepsis due to Methicillin resistant Staphylococcus aureus; F02.B18 Dementia in other diseases classified elsewhere, moderate, with other behavioral disturbance; L03.115 Cellulitis of right lower limb; Z79.899 Other long term (current) drug therapy; Z79.84 Long term (current) use of oral hypoglycemic drugs; Z79.82 Long term (current) use of aspirin; G30.9 Alzheimer's disease, unspecified; Z20.822 Contact with and (suspected) exposure to COVID-19; Z66 Do not resuscitate; Z51.5 Encounter for palliative care; T84.020A Dislocation of internal right hip prosthesis, initial encounter; I10 Essential (primary) hypertension; E78.00 Pure hypercholesterolemia, unspecified; E11.9 Type 2 diabetes mellitus without complications; Z88.2 Allergy status to sulfonamides; Z11.52 Encounter for screening for COVID-19; Z79.4 Long term (current) use of insulin; Z95.5 Presence of coronary angioplasty implant and graft; Z90.49 Acquired absence of other specified parts of digestive tract; Z98.890 Other specified postprocedural states; Y83.8 Other surgical procedures as the cause of abnormal reaction of the patient, or of later complication, without mention of misadventure at the time of the procedure; Y92.89 Other specified places as the place of occurrence of the external cause
CPT/HCPCS: 0241U; 36415; 36430; 71045; 71045-26; 72170; 72170-26; 73501-26-RT; 73501-RT; 73700-RT; 80048; 80053; 80202; 81001; 82947; 83605; 85025; 85027; 86140; 86850; 86900; 86901; 86920; 86922; 87040; 87070; 87075; 87077; 87186; 87205; 96365; 97605; 99223; 99233; 99238; 99285; 99285-25; A9270-GY; C1758; C1776; C9113; J0131; J0330; J0665; J1100; J1815; J2270; J2405; J2704; J2710; J3010; J3370; J3490; J7030; J7050; J7120; P9016